=== PATIENT | male | born 1935 | race Caucasian/White ===

== ENCOUNTER 2016-10-07 15:10 | Emergency (ER) | payer OTHER ==
[~2016-10-07] VITALS: Ht 170.2 cm; Wt 65.8 kg
[2016-10-07] MEDS ORDERED: ONDANSETRON 4MG/2ML VIAL (J2405) IV ONE (15:30)
[2016-10-07 15:51] LABS: MEAN CORPUSCULAR HEMOGLOBIN 31.8 pg (27.0-33.0); MEAN CORPUSCULAR HGB CONC 33.8 g/dl (32.0-36.5); MEAN CORPUSCULAR VOLUME 94.1 fl (80.0-96.0); RED CELL DISTRIBUTION WIDTH 12.4 % (11.5-14.5); WHITE BLOOD COUNT 5.9 K/mm3 (4.0-10.0)
[2016-10-07 15:52] LABS: BASO % 0.5 % (0.0-1.0); DIFF SLIDE NUMBER 110; EOS # 0.2 K/mm3 (0.0-0.50); EOS % 3.4 % (0.0-3.0); LARGE UNSTAINED CELL # 0.1 K/mm3 (0.0-0.4); LARGE UNSTAINED CELL % 1.2 % (0.0-4.0); MONO # 0.3 K/mm3 (0.0-0.8); MONO % 5.3 % (0.0-5.0); NEUTROPHILS # 4.3 K/mm3 (1.8-7.7); NEUTROPHILS % 72.6 % (36.0-66.0); PLATELET COUNT, AUTOMATED 143 k/mm3 (150-450)
--- NOTE | 2016-10-07 15:59 | REP ---
Clinical: Trauma . Comparison: None . Findings: The mediastinum and cardiac silhouette are stable and within normal limits for portable technique. The lung smiley are clear without acute consolidation, effusion, or pneumothorax. Skeletal structures are intact. Impression: Normal portable chest x-ray Signed by Koko Govea MD 10/07/2016 03:51 P
[2016-10-07] MEDS: MORPHINE 2 MG/ML 1ML SYRINGE IV PRN ×2 (16:08→16:58)
[2016-10-07 16:11] LABS: CALCIUM LEVEL 9.3 MG/DL (8.8-10.2); CREATININE FOR GFR 2.07 MG/DL (0.70-1.30); GLOMERULAR FILTRATION RATE 32.9 (>35); POTASSIUM SERUM 3.6 MEQ/L (3.5-5.1)
--- NOTE | 2016-10-07 16:57 | REP ---
Clinical: Trauma. Findings: The bilateral lung smiley are well-aerated and clear. No consolidation/contusion, effusion or pneumothorax appreciated. Mild age related bronchiectasis is appreciated along with trace right basilar fibroatelectatic change. No obvious nodule or mass lesion. Mediastinum demonstrates atherosclerotic changes to the thoracic aorta and coronary arteries without aortic aneurysm or cardiomegaly. No obvious mediastinal adenopathy or hematoma/injury. Surrounding musculoskeletal structures demonstrate age-related changes without fracture or trauma related changes. Limited evaluation of the upper abdomen demonstrates normal bilateral adrenal glands and cholelithiasis. Impression: No acute mediastinal or pleuroparenchymal process. No evidence for thoracic trauma. Atherosclerotic changes to the aorta and coronary arteries. Cholelithiasis. Signed by Koko Govea MD 10/07/2016 04:47 P
[2016-10-07] MEDS ORDERED: ULTR50TA PO (17:37)
[2016-10-07 17:40] VITALS: BP 169/89
[2016-10-07] MEDS ORDERED: traMADol 50 MG TAB PO ONE (17:45)
== END 2016-10-07 18:14 | disposition home or self-care (01) ==
LOC: M ED 17:18
DX: S20.212A Contusion of left front wall of thorax, initial encounter (principal); V49.40XA Driver injured in collision with unspecified motor vehicles in traffic accident, initial encounter; Y92.410 Unspecified street and highway as the place of occurrence of the external cause; Y93.89 Activity, other specified; Y99.9 Unspecified external cause status
CPT/HCPCS: 71010; 71250; 80048; 82550; 82553; 85025; 93041; 94760; 99285; J2405